=== PATIENT | female | born 1990 | race African-American/Black ===

== ENCOUNTER 2019-09-15 19:23 | Emergency (ER) | payer OTHER ==
[~2019-09-15] VITALS: Ht 160 cm; Wt 74.8 kg
[2019-09-15 19:35] VITALS: BP 114/76
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
[2019-09-15] MEDS ORDERED: ROBAXIN-750750 MG PO (20:59)
[2019-09-15] MEDS ORDERED: LIDODERM700 M1 TOPIC (20:59)
[2019-09-15] MEDS ORDERED: IBUPROFEN600 MG ORAL (20:59)
[2019-09-15 21:05] VITALS: BP 114/76
== END 2019-09-15 21:05 | disposition home or self-care (01) ==
LOC: EMR 20:07
DX: S16.1XXA Strain of muscle, fascia and tendon at neck level, initial encounter (principal); R51 Headache; V49.9XXA Car occupant (driver) (passenger) injured in unspecified traffic accident, initial encounter; Y92.9 Unspecified place or not applicable
CPT/HCPCS: 99282